=== PATIENT | female | born 1950 | race Caucasian/White ===

== ENCOUNTER 2017-03-01 05:40 | Inpatient (IN) | payer MEDICARE, OTHER ==
[~2017-03-01 05:40] MED LIST: LEVOTHYROXINE112 MC3 PO; OMEPRAZOLE40 M2 PO; SIMVASTATIN10 M1 PO; TYLENOL325 M2 PO; VITAMIN D2000 UNIT PO
--- NOTE | 2017-03-01 20:44 | NUR ---
VIRTUAL CARE NOTE: PT. IN BED WITH FAMILY AROUND. STATES SHE IS COMFORTABLE AND DOESN'T HAVE ANY QUESTIONS AT THIS TIME. ENCOURAGED TO AMBULATE IN THE HALLWAYS AND TO CONTINUE TO USE I.S. INSTRUCTED TO CALL FOR FUTURE NEEDS. STATES VERBAL AGREEMENT.
--- NOTE | 2017-03-01 20:44 | NUR ---
VIRTUAL CARE NOTE: PT. IN BED WITH FAMILY IN ROOM. PT. STATES SHE'S DOING OKAY, DIDN'T SLEEP VERY WELL LAST NIGHT. THIS NURSE EXPLAINED TO HER AND HER FAMILY THAT I TALKED TO THE DRESSMAKER GARMENT FITTER REGARDING HER DIFFICULTIES RESTING AND REVIEWED ALL OF HER ALLERGIES WITH HIM. INSTRUCTED THE PT. TO USE THE CALLIGHT AND NOT TO GET OUT OF BED UNLESS WE ARE THERE TO HELP HER IF NEEDED TO USE THE BATHROOM AND TO CALL FOR FURTHER NEEDS. STATES VERBAL UNDERSTANDING.
[2017-03-02 07:28] LABS: BASO % 0.1 % (0-2); EOS % 0.1 % (0-7); HCT-HEMATOCRIT 35.4 % (34.0-49.0); HGB-HEMOGLOBIN 11.4 gm/dl (12.0-15.5); IMMATURE GRANULOCYTES ABSOLUTE 0.01 tho/cmm (0-0.03); IMMATURE GRANULOCYTES PERCENT 0.1 % (0-0.3); LYMPH % 16.1 % (20-45); LYMPH ABSOLUTE COUNT 1.3 tho/cmm (0.8-4.5); MCHC MEAN CORPUSCULAR HGB CONC 32.2 % (32.0-36.0); MCV (MEAN CELL VOLUME) 90.1 fl (82.0-96.0); MEAN PLATELET VOLUME 10.2 cmc (9.4-12.4); MONOCYTE ABSOLUTE COUNT 0.5 tho/cmm (0.0-1.2); NEUTROPHIL ABSOLUTE COUNT 6.2 tho/cmm (1.6-8.0); NEUTROPHIL-AUTOMATED 6.2 tho/cmm (1.6-8.0); NEUTROPHILS % 77.6 % (40-80); PLATELET COUNT 204 tho/cmm (150-450); RED BLOOD COUNT 3.93 mil/cmm (4.00-5.20); RED CELL DISTRIBUTION WIDTH 12.5 % (12.4-16.4)
[2017-03-02 07:39] LABS: ALBUMIN 2.8 g/dl (3.5-5.0); ANION GAP 11 mmol/L (0-20); BLOOD UREA NITROGEN 8 mg/dl (6-24); CARBON DIOXIDE-VENOUS 28 mmol/L (22-32); CHLORIDE 109 mmol/l (96-110); GLUCOSE 98 mg/dL (70-110); PHOSPHOROUS 4.1 mg/dl (2.5-4.9); POTASSIUM 3.9 mmol/L (3.7-5.1); SODIUM 144 mmol/L (135-145); eGFR VALUE FOR BLACK >90 mL/Min
--- NOTE | 2017-03-02 13:11 | NUR ---
VIRTUAL CARE NOTE: PT AWAKE RESTING IN BED. PT STATES PAIN MANAGED WITH CONTINUOUS NERVE BLOCKS AND PAIN PILLS NEEDED. DISCUSS S/S TO MONITOR W/ CONTINUOUS NERVE BLOCK. PT VERBALIZES UNDERSTANDING. PT DENIES QUESTIONS/CONCERNS AT THIS TIME. VN WILL CONTINUE TO MONITOR AND FOLLOW W/ PT
--- NOTE | 2017-03-02 21:30 | NUR ---
VIRTUAL CARE NOTE: PT. IS IN THE BED, IN ROOM ALSO. STATES IS HAVING SOME SORENESS TO LEFT BREAST TODAY AND THE ADJUSTED HER PAIN BALLS, AND PAIN IS TOLERABLE WITH PAIN MEDS. SHE STATES HAS BEEN WORKING WITH HER LEYDI'S. DENIES ANY FURTHER NEEDS AT THIS TIME. INSTRUCTED TO CALL FOR FUTURE NEEDS AND ENCOURGED TO KEEP WALKING AND USING I.S. STATES VERBAL UNDERSTANDING.
[2017-03-03] MEDS ORDERED: BENADRYL25 M3 PO (09:29)
[2017-03-03] MEDS ORDERED: IBUPROFEN200 M2 PO (09:31)
[2017-03-03] MEDS ORDERED: ULTRAM50 M1 PO (09:32)
[2017-03-03] MEDS ORDERED: MILK OF MAGNESIA PO (09:34)
[2017-03-03] MEDS ORDERED: POTASSIUM CHLO20 ME2 PO (14:39)
== END 2017-03-03 10:40 | DRG 580 ==
LOC: SHSC 05:40 → ORW 10:45 → PACU 13:55 → 5WD 14:46
PROVIDERS: ADMIT Specialist
PROC: 0HTV0ZZ Resection of Bilateral Breast, Open Approach (ICD-10-PCS; principal; 2017-03-01)
PROC: 07B50ZX Excision of Right Axillary Lymphatic, Open Approach, Diagnostic (ICD-10-PCS; 2017-03-01)
PROC: 0H0V0JZ Alteration of Bilateral Breast with Synthetic Substitute, Open Approach (ICD-10-PCS; 2017-03-01)
PROC: 0JPT0XZ Removal of Tunneled Vascular Access Device from Trunk Subcutaneous Tissue and Fascia, Open Approach (ICD-10-PCS; 2017-03-01)
DX: C50.911 Malignant neoplasm of unspecified site of right female breast (principal); K57.92 Diverticulitis of intestine, part unspecified, without perforation or abscess without bleeding; K75.9 Inflammatory liver disease, unspecified; I10 Essential (primary) hypertension; Z92.21 Personal history of antineoplastic chemotherapy; Z88.2 Allergy status to sulfonamides; Z88.1 Allergy status to other antibiotic agents; Z91.040 Latex allergy status; Z87.11 Personal history of peptic ulcer disease; Z17.0 Estrogen receptor positive status [ER+]; E03.8 Other specified hypothyroidism; R12 Heartburn; N60.22 Fibroadenosis of left breast
CPT/HCPCS: A9520; C1713; C1781; C1789; G0206; J1170; J2250; J2765; J2795; J3010; J3370; Q9968

== ENCOUNTER 2017-03-03 11:50 | Emergency (ER) | payer MEDICARE, OTHER ==
[~2017-03-03 11:50] MED LIST changes: +BENADRYL25 M3 PO; +IBUPROFEN200 M2 PO; +MILK OF MAGNESIA PO; +ULTRAM50 M1 PO
[2017-03-03 12:48] LABS: BASO % 0.2 % (0-2); EOS % 1.1 % (0-7); EOSINOPHIL ABSOLUTE COUNT 0.1 tho/cmm (0.0-0.7); HGB-HEMOGLOBIN 12.1 gm/dl (12.0-15.5); IMMATURE GRANULOCYTES ABSOLUTE 0.04 tho/cmm (0-0.03); IMMATURE GRANULOCYTES PERCENT 0.5 % (0-0.3); LYMPH % 18.3 % (20-45); LYMPH ABSOLUTE COUNT 1.5 tho/cmm (0.8-4.5); MCH (MEAN CORPUSCULAR HGB) 29.4 pg (28.0-32.0); MCHC MEAN CORPUSCULAR HGB CONC 32.7 % (32.0-36.0); MCV (MEAN CELL VOLUME) 89.8 fl (82.0-96.0); MEAN PLATELET VOLUME 10.9 cmc (9.4-12.4); MONO % 4.5 % (0-12); MONOCYTE ABSOLUTE COUNT 0.4 tho/cmm (0.0-1.2); NEUTROPHIL ABSOLUTE COUNT 6.1 tho/cmm (1.6-8.0); NEUTROPHIL-AUTOMATED 6.1 tho/cmm (1.6-8.0); NEUTROPHILS % 75.4 % (40-80); PLATELET COUNT 127 tho/cmm (150-450); RED BLOOD COUNT 4.12 mil/cmm (4.00-5.20); RED CELL DISTRIBUTION WIDTH 12.8 % (12.4-16.4); WHITE BLOOD COUNT 8.2 tho/cmm (4.0-10.0)
[2017-03-03 12:58] LABS: URINE BILIRUBIN NEGATIVE (NEG); URINE BLOOD NEGATIVE (NEG); URINE GLUCOSE (UA) NEGATIVE (NEG); URINE KETONE NEGATIVE (NEG); URINE LEUKOCYTE ESTERASE NEGATIVE (NEG); URINE NITRITE NEGATIVE (NEG); URINE PROTEIN NEGATIVE (NEG)
[2017-03-03 13:06] LABS: URINE COLOR PALE YELLOW
[2017-03-03 13:06] LABS: ALKALINE PHOSPHATASE 78 U/L (33-138); ALT/SGPT 38 U/L (12-78); BILIRUBIN,TOTAL 0.2 mg/dl (0-1.5); BLOOD UREA NITROGEN 10 mg/dl (6-24); CALCIUM 8.9 mg/dl (8.5-10.5); CARBON DIOXIDE-VENOUS 29 mmol/L (22-32); CHLORIDE 106 mmol/l (96-110); GLUCOSE 105 mg/dL (70-110); SODIUM 142 mmol/L (135-145); eGFR VALUE FOR BLACK >90 mL/Min
[2017-03-03 13:07] LABS: URINE APPEARANCE CLEAR; URINE EPITHELIAL CELLS 0-4 /[HPF] (0-10); URINE RBC 0 /[HPF] (0-5); URINE WBC 0 /[HPF] (0-5)
[2017-03-03 13:12] LABS: ANION GAP 11 mmol/L (0-20); AST/SGOT 25 U/L (10-40); MAGNESIUM 2.1 mg/dl (1.8-2.6); POTASSIUM 3.6 mmol/L (3.7-5.1)
[2017-03-03] MEDS ORDERED: POTASSIUM CHLO20 ME2 PO (14:39)
== END 2017-03-03 15:01 ==
LOC: EDMED 11:50
PROVIDERS: Emergency Medicine
DX: E86.1 Hypovolemia (principal); R53.83 Other fatigue; R53.1 Weakness; Z85.3 Personal history of malignant neoplasm of breast; Z98.890 Other specified postprocedural states
CPT/HCPCS: J2405; J7030